=== PATIENT | female | born 1940 | race Caucasian/White ===

== ENCOUNTER 2017-01-04 11:01 | Emergency (ER) | payer MEDICARE, OTHER ==
[~2017-01-04] VITALS: Wt 72.0 kg
[~2017-01-04 11:01] MED LIST: CLOT14.2 TP; ESCI10TA48 PO; HYDR-3720 PO; METO-448 PO; NAPR275T83 PO; NAPR500T8 PO; NIFE60TA12 PO; PRED20TA PO; TERB250T9 PO; TRAM50TA2 PO
[2017-01-04] MEDS ORDERED: morphine 4 MG/ML VIAL IV STA (12:50)
[2017-01-04] MEDS ORDERED: SOD CHLORIDE 0.9% 1,000 ML IV STA (12:50)
[2017-01-04] MEDS ORDERED: ONDANSETRON 4 MG INJ IV STA (12:50)
[2017-01-04 13:17] LABS: ADD SCAN DIFF NO
[2017-01-04 13:18] LABS: BASOPHILS % 0.3 % (0.0-2.0); EOSINOPHILS # 0.1 10^3/ul (0.0-0.5); EOSINOPHILS % 0.9 % (0.0-7.0); HEMATOCRIT 40.1 % (37.0-47.0); HEMOGLOBIN 13.4 g/dl (12.0-16.0); LYMPHOCYTES % 30.3 % (15.0-51.0); MEAN CORPUSCULAR HEMOGLOBIN 31.8 pg (29.0-33.0); MEAN CORPUSCULAR HGB CONC 33.4 g/dl (32.0-37.0); MEAN PLATELET VOLUME 9.1 fl (7.4-10.4); MONOCYTE # 0.6 10^3/ul (0.3-0.9); MONOCYTES % 5.9 % (0.0-11.0); NEUTROPHIL # 6.2 10^3/ul (1.6-7.5); NEUTROPHILS % 62.2 % (39.0-77.0); PLATELET COUNT 219 10^3/UL (140-415); RED BLOOD COUNT 4.22 10^6/ul (4.20-5.40); RED CELL DISTRIBUTION WIDTH 13.3 % (11.5-14.5); WHITE BLOOD COUNT 9.9 10^3/ul (4.8-10.8)
[2017-01-04 13:27] LABS: INR 0.98
[2017-01-04 13:38] LABS: ALBUMIN 4.3 g/dl (3.3-4.9); POTASSIUM 4.2 mmol/L (3.5-5.1)
[2017-01-04 13:40] LABS: BILIRUBIN,INDIRECT 0.5 mg/dl (0-1.1); BILIRUBIN,TOTAL 0.5 mg/dl (0.2-1.3); CREATININE 1.06 mg/dl (0.44-1.00)
[2017-01-04 13:41] LABS: ALBUMIN/GLOBULIN RATIO 1.3; CALCIUM 9.1 mg/dl (8.4-10.2); TOTAL PROTEIN 7.6 g/dl (6.1-8.1)
--- NOTE | 2017-01-04 13:46 | RADRPT ---
PROCEDURE: CT Abdomen and Pelvis without contrast. CLINICAL INDICATION: Left lower quadrant pain. Poor appetite with weight loss. TECHNIQUE: CT scan of the abdomen and pelvis without contrast was performed on a multidetector hig h-resolution CT scanner. The patient was scanned without intravenous contrast. Coronal and sagittal reformatted images were obtained from the axial source images. Images were reviewed on a high-resol slinkset PACS workstation. The total exam CTDI equals 14.43 mGy and the total exam DLP equals 790.18 mG y-cm. One or more of the following dose reduction techniques were used: Automated exposure control. Adjustment of the mA and/or kV according to patient size. Use of iterative reconstruction technique. COMPARISON: None FINDINGS: CT abdomen: The lung bases are clear. The heart size is normal, without pericardial thickening or effusion. Th e liver is normal in size and density without focal mass or intrahepatic biliary dilatation. The sp tish is normal in size and homogeneous in density. The stomach is partially collapsed, but is gross ly unremarkable. The pancreas as visualized is normal. The gallbladder is surgically absent. There is no evidence for biliary dilatation. The adrenal glands are symmetric and normal. The kidneys a re symmetrically unremarkable as well. No renal calculus or obstructive uropathy or mass lesion is seen. The aorta is of normal caliber. Aortic vascular calcifications are present. There is no retroperit mcmullen lymphadenopathy. The ashlie hepatis region is clear. The bowel and mesentery, as visualized, are equally unremarkable. There is a small hiatal hernia. CT pelvis: The small bowel loops situated within the pelvis are unremarkable. There is normal appendix. The pe lvic organs are normal. The pelvic sidewalls and inguinal regions are clear. The sigmoid colon and rectum are unremarkable. No mass, lymphadenopathy, or free fluid is seen. No acute inflammation i s seen. The surrounding osseous structures are remarkable for degenerative spondylosis of the spine . No osteolytic or osteoblastic lesion is detected. IMPRESSION: 1. No mass, lymphadenopathy, or focal acute inflammatory process is identified. 2. Normal appendix. 3. Status post cholecystectomy. No biliary ductal dilatation. 4. Mild aortoiliac atherosclerosis. 5. Small hiatal hernia. RPTAT: BB .Riky Phillips MD, MD Date Time Electronically viewed and signed by .Riky Phillips MD, MD on 01/04/2017 13:46 .O/
[2017-01-04 13:54] LABS: ADD UMIC YES; URINE BILIRUBIN (Dip) NEGATIVE (NEGATIVE); URINE BLOOD (Dip) NEGATIVE (NEGATIVE); URINE COLOR YELLOW (YELLOW); URINE GLUCOSE (Dip) NEGATIVE (NEGATIVE); URINE KETONES (Dip) 15 (NEGATIVE); URINE LEUKOCYTE ESTERASE (Dip) TRACE (NEGATIVE); URINE NITRITE (Dip) NEGATIVE (NEGATIVE); URINE TOTAL PROTEIN (Dip) TRACE (NEGATIVE); URINE UROBILINOGEN (Dip) 0.2 E.U./dL (0.1-1.0)
[2017-01-04 14:12] LABS: URINE RBCS NONE SEEN /HPF (0)
[2017-01-04] MEDS ORDERED: AMLO-147 PO (14:21)
[2017-01-04] MEDS ORDERED: CEPH-443 PO (14:22)
--- NOTE | 2017-01-04 14:26 | ERD ---
ER Documentation Chief Complaint Date/Time DATE: 01/04/17 TIME: 14:24 Chief Complaint LOWER R SIDED ABD PAIN X 3 WEEKS HPI 76-year-old woman complains of left lower quadrant abdominal pain constant 3 weeks, incorrectly triaged as right sided abdominal pain. Patient denies fevers or chills, no recent travel, no chest pain or shortness of breath, no vaginal discharge or bleeding. Patient denies weight loss. ROS All systems reviewed and are negative except as per history of present illness. Medications Home Meds Active Scripts Cephalexin* (Keflex*) 500 Mg Capsule, 500 MG PO TID for 7 Days, CAP Prov:AMBROSE PRIEST MD 01/04/17 Reported Medications Amlodipine Besylate* (Amlodipine Besylate*) 10 Mg Tablet, 10 MG PO DAILY, #30 TAB 01/04/17 Naproxen Sodium* (Naproxen*) 275 Mg Tablet, 275 MG PO 03/08/14 Terbinafine Hcl* (Terbinafine Hcl*) 250 Mg Tablet, 250 MG PO DAILY, TAB 03/08/14 Metoprolol Tartrate* (Lopressor*) 25 Mg Tab, 25 MG PO BID, TAB 03/08/14 Escitalopram Oxalate* (Escitalopram Oxalate*) 10 Mg Tablet, 10 MG PO DAILY 03/08/14 Nifedipine* (Nifedical XL*) 60 Mg/Bottle Tab.osm.24, PO DAILY 12/28/11 Discontinued Reported Medications Naproxen* (Naproxen EC*) 500 Mg Tablet.dr, 500 MG PO BID 03/08/14 Hydrocodone Bit-Acetaminophen* ([place]*) 1 Tab Tab, 1 TAB PO Q4H Y for PAIN, TAB 03/08/14 Tramadol HCl (Tramadol HCl) 50MG Tab, 50 MG PO BID Y for PAIN, TAB 03/08/14 Discontinued Scripts Clotrimazole (RINGWORM) 14.2 Gm Cream..g., 14.2 GM TP BID for 10 Days, #1 TUB Prov:Yelena Arevalo PA-C 07/08/16 Prednisone* (Prednisone*) 20 Mg Tab, 40 MG PO DAILY for 3 Days, #6 TAB Prov:Yelena Arevalo PA-C 07/08/16 Prednisone* (Prednisone*) 20 Mg Tab, 40 MG PO DAILY for 4 Days, TAB Prov:DEISI HERNDON PA-C 07/04/16 Allergies Allergies: Coded Allergies: ciprofloxacin (Verified Allergy, Severe, rashes all bobdy, 07/04/16) ciprofloxacin HCl (Verified Allergy, Severe, rashes all bobdy, 07/04/16) aspirin (Verified Allergy, Unknown, 07/04/16) ibuprofen (Verified Allergy, Unknown, 07/04/16) PMhx/Soc Hypertension, depression, hypercholesterolemia History of Surgery: Yes (cholecystectomy) Anesthesia Reaction: No Hx Neurological Disorder: No Hx Respiratory Disorders: No Hx Cardiac Disorders: Yes (htn) Hx Psychiatric Problems: Yes (depression) Hx Miscellaneous Medical Probl: Yes (high cholesterol) Hx Alcohol Use: No Hx Substance Use: No Hx Tobacco Use: No Smoking Status: Never smoker FmHx Family History: No diabetes Physical Exam Vitals Vital Signs Date Time Temp Pulse Resp B/P Pulse Ox O2 Delivery O2 Flow Rate FiO2 01/04/17 11:04 98.0 50 18 155/57 99 Physical Exam GENERAL: Well-developed, well-nourished, well-hydrated, moderate discomfort to the lower abdomen, afebrile HEENT: Moist mucous membranes, pink conjunctiva, no cervical spine tenderness or step-off deformities, no goiter, no jaundice or icterus, extraocular movements intact without pain. No submandibular induration, and no pharyngeal erythema NEURO: Alert and oriented 3, cranial nerves II through XII intact bilaterally, pupils equal round reactive to light, no focal deficits or facial asymmetry, sensation intact distally Strength 5/5 in upper and lower extremities bilaterally CARDIAC: Regular rate and rhythm, no murmurs rubs or gallops LUNGS: Clear bilaterally no wheezing crackles or stridor ABDOMEN: Soft nontender, no guarding, no rigidity, no rebound, no psoas sign no obturator sign. Normoactive bowel sounds SKIN: Warm and dry to touch, no abrasions, contusions, or hematomas, no lacerations, no ecchymosis, no target lesions, and without ulcers EXTREMITIES: No clubbing cyanosis or edema, calves are bilaterally symmetrical, no Homans sign, no popliteal cord sign. Distal pulses equal and bilateral PSYCH: Normal affect without agitation or irritability Result Diagram: 01/04/17 1310 01/04/17 1310 Results 24 hrs Laboratory Tests Test 4/21/17 13:00 01/04/17 13:10 Urine Color YELLOW Urine Clarity SLIGHTLY CLOUDY Urine pH 6.0 Urine Specific [place] 1.025 Urine Ketones 15 Urine Nitrite NEGATIVE Urine Bilirubin NEGATIVE Urine Urobilinogen 0.2 E.U./dL Urine Leukocyte Esterase TRACE Urine Microscopic RBC NONE SEEN/HPF Urine Microscopic WBC 2-5/HPF Urine Epithelial Cells OCCASIONAL Urine Hemoglobin NEGATIVE Urine Glucose NEGATIVE% Urine Total Protein TRACE White Blood Count 9.910^3/ul Red Blood Count 4.2210^6/ul Hemoglobin 13.4g/dl Hematocrit 40.1% Mean Corpuscular Volume 95.0fl Mean Corpuscular Hemoglobin 31.8pg Mean Corpuscular Hemoglobin Concent 33.4g/dl Red Cell Distribution Width 13.3% Platelet Count 74654^3/UL Mean Platelet Volume 9.1fl Neutrophils % 62.2% Lymphocytes % 30.3% Monocytes % 5.9% Eosinophils % 0.9% Basophils % 0.3% Nucleated Red Blood Cells % 0.0/100WBC Neutrophils # 6.210^3/ul Lymphocytes # 3.010^3/ul Monocytes # 0.610^3/ul Eosinophils # 0.110^3/ul Basophils # 0.010^3/ul Nucleated Red Blood Cells # 0.010^3/ul Prothrombin Time 13.0Sec Prothrombin Time Ratio 1.0 INR International Normalized Ratio 0.98 Sodium Level 142mmol/L Potassium Level 4.2mmol/L Chloride Level 101mmol/L Carbon Dioxide Level 30mmol/L Anion Gap 15 Blood Urea Nitrogen 16mg/dl Creatinine 1.06mg/dl Glucose Level 87mg/dl Calcium Level 9.1mg/dl Total Bilirubin 0.5mg/dl Direct Bilirubin 0.00mg/dl Indirect Bilirubin 0.5mg/dl Aspartate Amino Transf (AST/SGOT) 25IU/L Alanine Aminotransferase (ALT/SGPT) 26IU/L Alkaline Phosphatase 73IU/L Total Protein 7.6g/dl Albumin 4.3g/dl Globulin 3.30g/dl Albumin/Globulin Ratio 1.30 Lipase 87U/L Current Medications Medications (Trade) Dose Ordered Sig/Vandana Route PRN Reason Start Time Stop Time Status Last Admin Dose Admin Sodium Chloride (NS) 1,000 ml @ 1,000 mls/hr Q1H STAT IV 01/04/17 12:50 01/04/17 13:49 DC 01/04/17 13:29 Morphine Sulfate (morphine) 4 mg ONCE STAT IV 01/04/17 12:50 01/04/17 12:51 DC 01/04/17 13:29 Ondansetron HCl (Zofran Inj) 4 mg ONCE STAT IV 01/04/17 12:50 01/04/17 12:51 DC 01/04/17 13:29 Cephalexin (Keflex) 500 mg ONCE ONCE PO 01/04/17 14:30 01/04/17 14:31 DC 01/04/17 14:38 Procedures/MDM IV line was established patient was placed on monitor technician rhythm strip revealed a sinus rhythm at about 80 bpm with upright P and T waves. Patient was afebrile. I administered 1 L normal saline intravenously, morphine 4 mg IV, Zofran 4 mg IV with good effect. CT scan of abdomen and pelvis was performed there was no acute inflammatory infectious pathology noted. Please refer to radiologist dictation for full report. Urine analysis was concerning for early urinary tract infection so I treated her here with cephalexin 500 mg p.o. Currently she denies active symptomatology although I suspect if left untreated it may progress. Differential diagnoses considered, included but not limited to acute coronary syndrome, pulmonary embolism, aortic dissection, abdominal aortic aneurysm, sepsis, stroke, meningitis, encephalitis, pneumonia, appendicitis, cholecystitis , bowel obstruction, pyelonephritis, nephrolithiasis, cystitis, as well as metabolic, hematologic, and electrolyte abnormalities. As well as abscess, cellulitis, fractures, and dislocations. Patient feels much better at this time, and vital signs are normal, symptoms have improved. I did give strict instructions to return to the ED if symptoms continue or worsen, patient will otherwise follow-up with primary care physician. Patient understood instructions and agreed to plan. Departure Diagnosis: Primary Impression: Abdominal pain Abdominal location: left lower quadrant Qualified Code: R10.32 - Left lower quadrant pain Condition: Good Patient Instructions: Abdominal Pain AMBROSE PRIEST MD Jan 04, 2017 14:26
[2017-01-04] MEDS ORDERED: CEPHALEXIN 500 MG CAP PO ONE (14:30)
[2017-01-04 14:55] VITALS: BP 114/67; PULSE 66; RESP 18; TEMP 98
== END 2017-01-04 14:56 | disposition home or self-care (01) ==
LOC: E/R 11:01
DX: R10.32 Left lower quadrant pain (principal); I10 Essential (primary) hypertension
CPT/HCPCS: 36415; 74176; 80053; 81001; 83690; 85025; 85610; 96374; 96375; 99285; J2270; J2405; J7030; 81003